=== PATIENT | male | born 2000 | race Caucasian/White ===

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

== ENCOUNTER 2024-09-13 18:32 | Emergency (ER) | payer BC, OTHER ==
[2024-09-13 18:45] LABS: Glucose,Whole Blood 86 mg/dL (70-110)
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
[2024-09-13] MEDS: SODIUM CHLORIDE 0.9% 1,000 ML IV STA (18:50)
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
[2024-09-13 19:14] LABS: Basophils % (A) 0 %; Eosinophils # (A) 0.1 k/uL (0-0.7); Eosinophils % (A) 1 %; HCT 44.5 % (39.0-53.0); HGB 15.2 gm/dL (13.0-17.5); INR 1.1 (<1.2); Lymphocytes # (A) 2.9 k/uL (1.0-4.8); Lymphocytes % (A) 28 %; MCH 29.8 pg (25.0-35.0); MCHC 34.1 g/dL (31.0-37.0); MCV 87.5 fL (80.0-100.0); Monocytes # (A) 0.3 k/uL (0-1.0); Monocytes % (A) 3 %; Neutrophils % (A) 67 %; Platelet Count 204 k/uL (150-450); Prothrombin Time 11.9 sec (10.0-12.5); RBC 5.09 m/uL (4.30-5.90); RDW 12.5 % (11.5-15.5); WBC 10.6 k/uL (3.8-10.6)
[2024-09-13 19:18] LABS: ALT 114 U/L (4-49); AST 120 U/L (17-59); African American GFR (CKD) >90 (>60 ml/min/1.73 sqM); Albumin 4.3 g/dL (3.5-5.0); Alkaline Phosphatase 55 U/L (38-126); Anion Gap 10 mmol/L; Blood Urea Nitrogen 18 mg/dL (9-20); Calcium 8.5 mg/dL (8.4-10.2); Carbon Dioxide 26 mmol/L (22-30); Chloride 107 mmol/L (98-107); Glucose 92 mg/dL (74-99); Non-African American GFR(CKD) >90 (>60 ml/min/1.73 sqM); Sodium 143 mmol/L (137-145); Total Bilirubin 0.6 mg/dL (0.2-1.3); Total Protein 6.8 g/dL (6.3-8.2)
[2024-09-13 19:25] LABS: Alcohol 128 mg/dL
[2024-09-13] MEDS: ONDANSETRON 4 MG/2 ML VIAL IVP STA (20:04)
[2024-09-13] MEDS: HYDROmorphone 1 MG/ML 1 ML SYRINGE IVP STA (20:04)
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
[2024-09-13 20:49] LABS: Amphetamine Screen,Urine Not Detected (NotDetected); Barbiturate Screen,Urine Not Detected (NotDetected); Benzodiazepines Screen,Urine Not Detected (NotDetected); Cocaine Screen,Urine Not Detected (NotDetected); Methadone Screen, Urine Not Detected (NotDetected); Opiate Screen,Urine Not Detected (NotDetected); Oxycodone Screen, Urine Not Detected (NotDetected); Phencyclidine Screen,Urine Not Detected (NotDetected); Tricyclic Antidepressant,Urine Not Detected (NotDetected); Urn Cannabinoid Scrn Not Detected (NotDetected)
[2024-09-13] MEDS ORDERED: MORPHINE SULFATE 4 MG/ML SYRINGE IVP PRN (20:51)
[2024-09-13] MEDS ORDERED: ONDANSETRON 4 MG/2 ML VIAL IVP PRN (20:51)
[2024-09-13] MEDS ORDERED: NALOXONE 0.4 MG/ML 1 ML VIAL IV PRN (20:51)
[2024-09-13] MEDS: LIDOCAINE 1%-EPI 1:100,000 20 ML VIAL SQ STA (21:15)
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
--- NOTE | 2024-09-13 22:24 | XR ---
EXAMINATION TYPE: XR chest 1V portable DATE OF EXAM: 09/13/2024 10:17 PM COMPARISON: Earlier exam CLINICAL INDICATION: Male, 23 years old with history of ptx, TECHNIQUE: XR chest 1V portable view(s) obtained. FINDINGS: The heart size is normal. The pulmonary vasculature is normal. Left apical pneumothorax has diminished in size over the interval. Left-sided chest tube remains in p osition. Pulmonary contusion is in the left lower lobe. Poor visualization of patient's known left rib fractures. IMPRESSION: 1. Diminished size of left apical pneumothorax. 2. Left lower pulmonary contusion [facility], , 09/13/2024 10:21 PM
[2024-09-13] MEDS: HYDROmorphone 0.5 MG/0.5 ML SYRINGE IVP STA (22:27)
[2024-09-13] MEDS: ACETAMINOPHEN IV (For NPO) 1,000 MG in EMPTY BAG 1 BAG IVPB STA (22:32)
[2024-09-13 22:59] VITALS: RESP 20
[2024-09-13 23:02] VITALS: BP 140/82; PULSE 108; TEMP 97.8
== END 2024-09-13 22:30 | disposition other institution (70) ==
LOC: EC 18:32 → 3SCARD 20:51 → UNDOADMIN 20:51 → EC 22:30
DX: S22.32XA Fracture of one rib, left side, initial encounter for closed fracture (principal); S02.609A Fracture of mandible, unspecified, initial encounter for closed fracture; S27.2XXA Traumatic hemopneumothorax, initial encounter; S27.321A Contusion of lung, unilateral, initial encounter; R09.02 Hypoxemia; R00.0 Tachycardia, unspecified; V86.55XA Driver of 3- or 4- wheeled all-terrain vehicle (ATV) injured in nontraffic accident, initial encounter
CPT/HCPCS: 36415; 93005; 86900; 86901; 80053; 83605; 84484; 85025; 85610; 85730; 86850; 80306; 80320; 72170; 71045; 72125; 70450; 71260; 74177; 99291; 32551; 96374; 96375; 96376; 96361; C1729; G0390; J2405; J1171 ×2; Q9967

== ENCOUNTER → 2024-09-25 | Outpatient (CLI) | payer BC ==
--- NOTE | 2024-09-25 14:43 | XR ---
EXAMINATION TYPE: XR chest 2V DATE OF EXAM: 09/25/2024 2:33 PM COMPARISON: Multiple radiographs, with the most recent on 09/13/2024 CT chest and abdomen pelvis 2024 TECHNIQUE: XR chest 2V Frontal and lateral views of the chest. CLINICAL INDICATION:Male, 23 years old with history of J93.9 Pneumothorax; FINDINGS: Lungs/Pleura: Small left pleural effusion. Improving left mid and lower lung patchy airspace opacitie s. Interval removal of left chest tube with small increased left apical pneumothorax. Pulmonary vascularity: Unremarkable. Heart/mediastinum: Cardiomediastinal silhouette is unremarkable. Musculoskeletal: No acute osseous pathology. Redemonstration of left posterior lateral rib fractures. IMPRESSION: 1. Increased small left apical pneumothorax (10%) with interval removal of left chest tube. 2. Small left pleural effusion. 3. Left mid and lower lung patchy airspace opacities which is improved from prior exam. Probably rep resents resolving pulmonary contusion. Attempted to contact the ordering provider without success. [facility], , 09/25/2024 2:40 PM
== END | disposition home or self-care (01) ==
LOC: RADXRMAIN 14:13
PROVIDERS: ATTEND Surgery
DX: J93.9 Pneumothorax, unspecified (principal); J90 Pleural effusion, not elsewhere classified; R91.8 Other nonspecific abnormal finding of lung field
CPT/HCPCS: 71046